=== PATIENT | female | born 1970 | race Caucasian/White ===

== ENCOUNTER → 2018-09-29 | Outpatient (CLI) | payer BC ==
[~2018-09-29] MED LIST: DIATRIZOATE MEGL/DIATRIZOA SOD 30 ML BTL PO ONE; IOPAMIDOL 370 MG/ML 200 ML INFUS..BTL INJ ONE; SODIUM CHLORIDE 0.9% 50ML 50 ML ONE
--- NOTE | 2018-09-29 19:31 | Diagnostic Imaging Report ---
CT Pelvis with Intravenous Contrast INDICATION: Hernia surgery 10 years ago, left lower quadrant pain ^[id number] ^[id number] TECHNIQUE: Thin collimation axial images obtained from the iliac crests to the level of the pubic symphysis following the uneventful administration of oral and 100 cc of low osmolar, nonionic intravenous contrast. Dose reduction techniques used: Automated exposure control, adjustment of the mAs and/or kVp according to patient size, standardized low-dose protocol, and/or iterative reconstruction technique. RADIATION DOSE: Total DLP: 179.6 mGy*cm Estimated effective dose: (DLP x 0.015 x size factor) mSv CTDIvol has been reviewed. It is below the limits set by the Radiation Protocol Committee (RPC). COMPARISON: None. ABDOMEN FINDINGS: Bowel: Small Bowel: Enteric contrast present throughout. No dilatation or mural thickening. Large Bowel: Enteric contrast in the visualized portion of the right colon. Mild to moderate burden of stool in the descending colon. A few diverticula in the descending colon without associated inflammation. Appendix: Normal appendix. Bladder: Under distended but otherwise normal. The uterus is present and normal in morphology. There is a follicle in the left ovary measuring 17 mm. Peritoneum/retroperitoneum: No free fluid or fluid collection Bones: No focal osseous lesions. Soft tissues: There is mildly prominent soft tissue along the left external iliac vascular bundle (series 2, image 26). No associated fluid collection. No evidence of hernia. IMPRESSION: 1. Mild burden of diverticulosis coli. No evidence for bowel obstruction or inflammation. Normal appendix. 2. Postoperative changes of the left lower quadrant near the inguinal region suggestive of hernia repair. No hernia recurrence. Signed by: Dr. Lyssa Butts MD on 09/29/2018 7:28 PM
== END ==
LOC: CT 16:51
PROVIDERS: ATTEND Surgery
DX: R10.32 Left lower quadrant pain (principal)
CPT/HCPCS: 72193; 81025